=== PATIENT | female | born 1955 | race Caucasian/White ===

== ENCOUNTER 2020-12-02 10:51 | Emergency (ER) | payer OTHER ==
[~2020-12-02] VITALS: Ht 167.6 cm; Wt 86.2 kg
--- NOTE | ~2020-12-02 | EMS ---
[address] [address] EMS Patient Care Report Name: MARISABEL SIDHU Room #: DEP [facility] Yeung#: [id number] Admission: 12/02/20 Attend Phys: Discharge: 12/02/20 Date of : 53 Report #: [id number] THIS REPORT FOR: //name// Report Transmitted: 12/04/2020 14:28 EMS Care Summary [place], [place]/[facility] Incident [id number] @ 12/02/2020 10:17 Incident Location [address] [place] [address] Patient MARISABEL KAISER Female, 65 Years 1955 Patient Address [address] [place] [address] [place] [address] Patient History Hypertension (HTN),Breast Cancer, Patient Allergies Morphine, Chief Complaint CP Disposition Transported No Lights/[place] Dispatch Reason Chest Pain (Non-Traumatic) Transported To [facility] Narrative M41 DISPATCHED TO A CP T8 AND [facility] EMS STAND BY ON SCENE. M41 AOS AND FOUND A FEMALE PT WHO STATES SHE STARTED HAVING CP ABOUT 20 MINUTES AGO. SHE INITALLY RATED THE PAIN A 2/10. THE PT STATES THAT IT WAS IN THE LOWER L SIDE OF HER CHEST AND DOES NOT RADIATE ANYWHERE. PT DENIES HAVING ANY OTHER COMPLAINTS. PT DENIES SOA, DIZZINESS, NV, ABD PAIN. PT STATES THAT SHE [address] [address] EMS Patient Care Report Name: MARISABEL SIDHU Room #: DEP [facility].#: [id number] Admission: 12/02/20 Attend Phys: Discharge: 12/02/20 Date of : 53 Report #: [id number] BELIEVES THAT SHE IS JUST TOO HOT SHE WAS OUTSIDE AT A UATSDIN EVENT. PT WALKED TO THE AMBULANCE. VITALS OBTAINED. 4 AND 12 LEAD EKG OBTAINED. 324MG ASA PO GIVEN. PT AGREED TO GO THE [place] [address] [facility]. EN ROUTE PT REMAINED STABLE. REPORT GIVEN TO RN [facility]. SIGNATURES OBTAINED. TRANSFER OF CARE TOOK PLACE. M41 IN SERVICE. [facility] Initial Vitals @10:31P: 85,CO: 2,SpO2: 95,NC Suspected: false @10:30P: 78, @PTAP: 90,R: 16,BP: 132/98,Pain: 2/10,GCS: 15,SpO2: 96,Revised Trauma: 12, @10:29P: 80,R: 18,BP: 134/74,Pain: 0/10,GCS: 15,SpO2: 94,Revised Trauma: 12, Assessments @10:26MENTAL:Time Oriented,Person Oriented,Place Oriented,Event Oriented,SKIN:HEENT:Head/Face: No Abnormalities,Neck/Airway: No Abnormalities,LUNG SOUNDS:General: No Abnormalities,ABDOMEN:General: No Abnormalities,PELVIS//GI:No Abnormalities,EXTREMITIES:Capillary Refill: Right Upper: < 2 Sec,Left Arm: No Abnormalities,Right Arm: No Abnormalities,Left Leg: No Abnormalities,Right Leg: No Abnormalities,PULSE:Radial: 2+ Normal,NEURO:No Abnormalities, Impression Chest Pain / Discomfort Procedures @PTAALS AssessmentResponse: UnchangedSucceeded@10:3112-Lead ECGResponse: UnchangedSucceeded@10:3012-Lead ECGResponse: UnchangedSucceeded@10:29Aspirin - 324 Milligrams (mg) - OralResponse: Unchanged 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,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 Assessment,Response: UnchangedSucceeded, DRY KILN OPERATOR,BP: 132/98 M,PULSE: 90,RR: 16 R,SPO2: 96 Ox,ETCO2: ,BG: ,PAIN: 2,GCS: 15, 10:17,Call Received 10:17,Dispatch Notified [address] [address] EMS Patient Care Report Name: MARISABEL SIDHU Room #: [facility] Gamal#: [id number] Admission: 12/02/20 Attend Phys: Discharge: 12/02/20 Date of : 53 Report #: [id number] 10:17,Dispatched 10:19,En Route 10:25,On Scene 10:26,At Patient 10:29,BP: 134/74 M,PULSE: 80,RR: 18 R,SPO2: 94 Ox,ETCO2: ,BG: ,PAIN: 0,GCS: 15, 10:29,Aspirin - 324 Milligrams (mg) - Oral,Response: Unchanged 10:30,12-Lead ECG,Response: UnchangedSucceeded, 10:30,BP: / M,PULSE: 78,RR: R,SPO2: Ox,ETCO2: ,BG: ,PAIN: ,GCS: , 10:31,12-Lead ECG,Response: UnchangedSucceeded, 10:31,BP: / M,PULSE: 85,RR: R,SPO2: 95 Ox,ETCO2: ,BG: ,PAIN: ,GCS: , 10:38,Depart Scene 10:48,At Destination 10:57,Call Closed Disclaimer [email or web address] Copyright 2020 [employer] This EMS Care Summary contains data elements from the applicable legal record (which may be displayed differently). It is designed to provide pertinent information for the following purposes: continuity of care, clinical quality, and state data reporting. The complete legal record is available to ED staff and administrators of the receiving hospital in ES's Patient Tracker. All data is provided "as is."
[2020-12-02] MEDS ORDERED: LIPITOR 20 MG T20 M1 PO (11:04)
[2020-12-02] MEDS ORDERED: CELEBREX 200 M200 MG PO (11:05)
[2020-12-02] MEDS ORDERED: BUPROPION HCL150 M1 PO (11:05)
[2020-12-02] MEDS ORDERED: CELEXA 20 MG TA20 MG PO (11:06)
[2020-12-02] MEDS ORDERED: DESYREL150 MG PO (11:06)
[2020-12-02] MEDS ORDERED: LEVOTHYROXINE112 MC1 PO (11:06)
[2020-12-02 11:16] LABS: ABSOLUTE NEUTROPHILS 4.6 thou/uL (1.4-8.2); BASOPHILS 0.7 % (0.0-2.0); EOSINOPHILS 2.2 % (0.0-3.0); HEMATOCRIT 37.3 % (37.0-47.0); HEMOGLOBIN 12.4 gm/dL (12.0-15.0); MCH 28.5 pg (26.0-34.0); MCHC 33.4 g/dL (28.0-37.0); MCV 85.4 fL (80.0-100.0); MONOCYTES 5.4 % (1.0-8.0); PLATELET COUNT 242 thou/uL (150-400); POLYS 70.7 % (36.0-66.0); RBC 4.37 mil/uL (4.20-5.00); RDW 14.2 % (10.5-14.5); WBC 6.6 thou/uL (4.0-11.0)
[2020-12-02 11:18] LABS: ANION GAP 8 mmol/L (7-16); BUN 13 mg/dL (7-18); CALCIUM 8.9 mg/dL (8.5-10.1); CHLORIDE 106 mmol/L (98-107); CO2 28 mmol/L (21-32); GLUCOSE 118 mg/dL (74-106); POTASSIUM 3.6 mmol/L (3.5-5.1); SODIUM 142 mmol/L (136-145)
[2020-12-02 11:28] LABS: ALBUMIN 3.5 g/dL (3.4-5.0); SGOT 28 U/L (15-37); SGPT 34 U/L (14-59); TOTAL BILIRUBIN 0.6 mg/dL (0.2-1.0); TOTAL PROTEIN 6.2 g/dL (6.4-8.2); TROPONIN-I <0.06 ng/mL (<0.06)
--- NOTE | 2020-12-02 12:25 | EKG ---
[address] [address] ELECTROCARDIOGRAM REPORT Name: MARISABEL SIDHU Room #: [facility] [id number] Admission: 12/02/20 Attend Phys: Discharge: Date of : 53 Report #: [id number] 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
[2020-12-02 13:13] LABS: URINE BILIRUBIN NEGATIVE (Negative); URINE BLOOD NEGATIVE (Negative); URINE CLARITY CLEAR; URINE COLOR YELLOW; URINE GLUCOSE-RANDOM* NEGATIVE (Negative); URINE KETONES NEGATIVE (Negative); URINE LEUKOCYTES-REFLEX TRACE (Negative); URINE NITRITE-REFLEX NEGATIVE (Negative); URINE PROTEIN (DIPSTICK) NEGATIVE (Negative); URINE UROBILINOGEN 0.2 E.U./dl (0.2-1.0)
[2020-12-02 13:26] VITALS: BP 149/80
== END 2020-12-02 15:25 | disposition home or self-care (01) ==
LOC: ER 10:51
PROVIDERS: Emergency Medicine
DX: R07.89 Other chest pain (principal); Z20.822 Contact with and (suspected) exposure to COVID-19; E78.00 Pure hypercholesterolemia, unspecified; E78.5 Hyperlipidemia, unspecified; E03.9 Hypothyroidism, unspecified; F32.9 Major depressive disorder, single episode, unspecified; Z79.899 Other long term (current) drug therapy; Z88.5 Allergy status to narcotic agent